=== PATIENT | female | born 1950 | race Two or more races ===

== ENCOUNTER → 2019-02-21 | Outpatient (CLI) | payer MEDICARE ==
--- NOTE | 2019-02-21 11:23 | XR ---
EXAMINATION TYPE: XR cervical spine limited DATE OF EXAM: 02/21/2019 COMPARISON: NONE HISTORY: Pain TECHNIQUE: Three views are submitted. FINDINGS: The odontoid is intact. There are no compression deformities. The prevertebral soft tissue structur es are within normal limits. Severe degenerative disc disease C4-5 and C5-C6 with moderate changes at C6-C7. Posterior spondylosis noted. IMPRESSION: 1. Multilevel severe degenerative disc disease.
--- NOTE | 2019-02-21 11:24 | XR ---
EXAMINATION TYPE: XR thoracic spine 2V DATE OF EXAM: 02/21/2019 COMPARISON: NONE HISTORY: Pain Alignment is anatomic. There is no compression deformities. Multilevel degenerative disc disease and hypertrophic spurring is noted. No compression deformities. IMPRESSION: 1. Multilevel degenerative disc disease and hypertrophic spurring
== END | disposition home or self-care (01) ==
LOC: RADXRMAIN 10:50
PROVIDERS: ATTEND Chiropractor
DX: M50.321 Other cervical disc degeneration at C4-C5 level (principal); M51.34 Other intervertebral disc degeneration, thoracic region
CPT/HCPCS: 72040; 72070